=== PATIENT | female | born 2005 | race African-American/Black ===

== ENCOUNTER 2024-01-14 02:02 | Inpatient (IN) | payer BC, SELFPAY ==
[2024-01-14] VITALS (121 sets, daily range): BP systolic 117–202; BP diastolic 60–145; PULSE 62–100; RESP 14–18; TEMP 36.4–36.9; O2SAT 93–99; BMI 25.0
[2024-01-14] MEDS: NIFEdipine 10 MG CAPSULE PO (01:36)
[2024-01-14] MEDS: LABETALOL HCL 5 MG/ML inj IVP ×5 (01:52→13:41)
[2024-01-14 02:05] LABS: Hematocrit 36.6 % (33.0-51.0); Hemoglobin* 11.9 gm/dL (12.0-16.0); Mean Corpuscular HGB Conc 33 gm/dL (32-36); Mean Corpuscular Hemoglobin 27 pg (26-34); Mean Corpuscular Volume 84 fL (80-100); Platelet Count* 330 K/uL (140-440); Red Blood Count 4.37 m/uL (4.00-5.20); White Blood Count* 14.45 K/uL (4.50-11.00)
[2024-01-14] MEDS: MAGNESIUM IV 4 GM/100 ML PIGGYBACK IVPB (02:05)
[2024-01-14] MEDS: LACTATED RINGERS 1000 ML 1,000 ML 75 ML IV ×3 (02:05→18:20)
[2024-01-14 02:06] LABS: Slide Review Reflex No
[2024-01-14] MEDS: MAGNESIUM IV 2 GM/50 ML PIGGYBACK IVPB (02:06)
[2024-01-14 02:20] LABS: Alanine Aminotransferase* 19 U/L (4-35); Aspartate Amino Transferase* 14 U/L (12-35); Blood Urea Nitrogen* 6 mg/dL (5-24); Creatinine* 0.5 mg/dL (0.5-1.5); Estimated Glomerular Filt Rate 138 ml/min
[2024-01-14 02:25] LABS: Appearance Urine Clear (Clear); Bilirubin Urine 1+ (Negative); Blood Urine Trace-intact (Negative); Color Urine Yellow (Yellow); Glucose Urine Negative (Negative); Ketones Urine Trace (Negative); Leukocyte Esterase Urine Negative (Negative); Nitrite Urine Negative (Negative); Protein Urine 3+ (Negative); Specific Gravity Urine >= 1.030 (1.000-1.030)
[2024-01-14 02:39] LABS: Bacteria Urine Moderate; Calcium Oxalate Crystals Urine Moderate; RBC Urine 0-2 (0-2); Squamous Epithelial Cell Urine Few (None-Few)
[2024-01-14 02:40] LABS: Hyaline Casts Urine Few (None-Few)
[2024-01-14 02:50] LABS: Creatinine Urine 357.5 mg/dL
[2024-01-14 03:17] LABS: Total Protein Urine 2560 mg/dL
[2024-01-14] MEDS: ONDANSETRON 2 MG/ML inj 4 MG IV (03:42)
[2024-01-14] MEDS: MAGNESIUM Infusion 40 GM/1,000 ML IV.SOLN IVPB ×2 (04:03→20:18)
--- NOTE | 2024-01-14 04:31 | P.OBHP_ITS ---
OB - H&P: HPI Labor/Induction History of Present Illness Date Seen: 01/14/24 Chief Complaint: back pain Chief complaint: Maternity Narrative: Melissa Talavera is a 18 year old 1 para 0 at 36w1d who presents with back pain and contractions with concern for labor. This started around 10 pm on 01/13/24. When she arrived for evaluation, BP was significantly elevated at 184/114. Patient notes that she has been experiencing significant lower extremity swelling for the past several days. Additionally, has noticed some spots in her vision and dizziness. Denies headache. Has bilateral upper quadrant pain and back pain. Baby has been moving normally. Denies vaginal bleeding or LOF. Repeat blood pressures remained severely elevated. She was given 10 mg PO nifedipine without improvement in pressures and subsequently given 20 mg IV la betalol and started on IV magnesium with 6 g loading dose. She reports that swelling has improved since the magnesium was started. Labs significant for protein/creatinine ratio of 7.10. Labs Blood type: AB (-) negative Rubella: immune RPR/VDLR: nonreactive GBS status: unknown HBsAG: negative Meds Home Medications and Allergies Home Medications Medication Instructions Recorded Confirmed Type No Known Home Medications 02/12/23 01/14/24 History Allergies Allergy/AdvReac Type Severity Reaction Status Date / Time coconut Allergy Intermediate Verified 01/14/24 01:55 OB - H&P: Exam Physical Exam: Vital signs: Temp Pulse Resp BP 97.7 F 78 18 126/71 01/14/24 04:00 01/14/24 04:27 01/14/24 01:39 01/14/24 04:27 Constitutional: Constitutional: no acute distress Routine Respiratory Exam: Respiratory: Present CTA bilaterally Routine Cardiovascular Exam: Cardiovascular: RRR Routine Abdominal Exam: Comments: b/l upper quadrant tenderness to palpation Detailed Labor and Delivery Exam: Patient Gravid: Yes Dilation (cm): 1 Effacement (%): 50 Cervix position: mid Consistency: medium Fetus (Single): Station: -3 Amniotic Membrane Status: intact Heart Rate Baseline: 120 Monitor Accelerations: Present Monitor Decelerations: None Routine Extremities Exam: Extremities: Present pulses intact and pedal edema Routine Neurological Exam: Absent clonus OB - Results Labs Labs: Short CBC 01/14/24 Range/Units 01:45 WBC 14.45 H (4.50-11.00) K/uL Hgb 11.9 L (12.0-16.0) gm/dL Hct 36.6 (33.0-51.0) % Plt Count 330 (140-440) K/uL BMP 01/14/24 01:45 BUN 6 Creatinine 0.5 Liver Function 01/14/24 Range/Units 01:45 AST 14 (12-35) U/L ALT 19 (4-35) U/L Urine 01/14/24 Range/Units 01:57 Urine Color Yellow (Yellow) Urine Appearance Clear (Clear) Urine pH 7.0 (5.0-8.5) Ur Specific [place] >= 1.030 (1.000-1.030) Urine Protein 3+ A (Negative) Urine Glucose (UA) Negative (Negative) OB - Problem Based A/P Additional Plan (1) Pre-eclampsia, severe: Status: Acute (2) : Status: Acute Plan Patient presents with pre-eclampsia with severe features at 36w1d gestation. Plan of care discussed with on-call branch sales manager, Dr. Timmons. 1. Pre-eclampsia with severe features - continue magnesium, 2 g/hr, until delivery - labs Q6H until delivery - start nifedipine XL 30 mg - continue to monitor closely 2. IOL secondary to the above - cook catheter placed at 445 - begin low-dose Pitocin 6 hours following - anticipate 3. GBS unknown - GBS swab pending - intrapartum abx ppx when in labor
[2024-01-14 07:57] LABS: Hematocrit 32.1 % (33.0-51.0); Hemoglobin* 10.4 gm/dL (12.0-16.0); Mean Corpuscular HGB Conc 32 gm/dL (32-36); Mean Corpuscular Hemoglobin 27 pg (26-34); Mean Corpuscular Volume 84 fL (80-100); Platelet Count* 313 K/uL (140-440); Red Blood Count 3.82 m/uL (4.00-5.20); White Blood Count* 16.64 K/uL (4.50-11.00)
[2024-01-14 07:58] LABS: Slide Review Reflex No
[2024-01-14 08:13] LABS: Alanine Aminotransferase* 17 U/L (4-35); Aspartate Amino Transferase* 14 U/L (12-35); Blood Urea Nitrogen* 3 mg/dL (5-24); Creatinine* 0.4 mg/dL (0.5-1.5); Est. Creatinine Clearance* 193.73; Estimated Glomerular Filt Rate 145 ml/min
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
[2024-01-14] MEDS: NIFEdipine 30 MG TAB.ER.24 PO ×2 (08:31→13:44)
[2024-01-14] MEDS: ACETAMINOPHEN 500 MG TABLET 1000 MG PO (09:09)
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
[2024-01-14 09:22] LABS: Magnesium* 5.4 mg/dL (1.5-2.6)
--- NOTE | 2024-01-14 09:43 | P.OBPN_ITS ---
Subjective Time Seen by Provider: 09:43 Date Seen: 01/14/24 Narrative: Called to evaluate the patient for acute onset of chest pain, like an elephant sitting on my chest. Blood pressures 150s/90s. This was noted when laying back, and resolved with sitting up. EKG was unremarkable other than prolonged QTc. Troponin and mag level were obtained by order from the on-call provider, Dr. Fishman. Upon my arrival, chest pain had resolved. Patient notes feeling tired, but otherwise no acute complaints. Denies headache or blurry vision. Notes a lot of urine output. Leg swelling has improved from earlier in the week. BPs remain 150s/90s, just below acute treatment range. No contractions or cramping. Objective Exam: General appearance: Well-appearing adult female. Alert, oriented and appropriate. Sitting up in hospital bed. HEENT: EOMI, no conjunctival injection or discharge. MMM. Neck: Supple. CV: RRR, no rubs, 2/6 systolic murmur. Pulm: CTAB, no wheezes, rales or rhonchi. Abdomen: Gravid. Soft. MSK: Moving all extremities. Ext: Warm and well-perfused. Trace LE edema. Skin: No rashes appreciated over exposed skin. Neuro: Grossly normal strength and sensation. No focal deficits. Psych: Normal affect. Vital Signs: Last Vital Signs Temp 97.6 F 01/14/24 05:32 Pulse 82 01/14/24 09:34 Resp 18 01/14/24 01:39 BP 153/99 H 01/14/24 09:34 Pulse Ox 98 01/14/24 08:28 Assessment Assessment: induction ongoing Station: -3 Heart Rate Baseline: 120 Half-Way Variability: Moderate (6-25) Monitor Accelerations: Absent Monitor Decelerations: None Tracing Comments: Category II Plan Plan: # Chest pain: EKG unrevealing. D/c zofran for prolonged QTc. Do not suspect ACS. - troponin and mag level pending - Avoid QT prolonging medications # Severe pre-eclampsia - PET TRAINING INSTRUCTOR consult - continue mag protocol for seizure prophylaxis - Long-acting nicardipine 30 mg QD. Can consider additional dose if BPs not improved after 2 hours - Continue PRN medications for severe range pressures #IOL - Cook catheter in place - Initiate low dose pitocin at 1000 - Low threshold to discuss delivery by with PET TRAINING INSTRUCTOR if uncontrolled BPs, worsening clinical status, intolerance # Late pre-term status - Betamethasone - Plan for peds presence at delivery #GBS unknown - Start prophylaxis in active labor
[2024-01-14 09:48] LABS: Magnesium* 5.3 mg/dL (1.5-2.6)
[2024-01-14 09:55] LABS: Troponin I* 0.02 ng/mL (0.01-0.04)
[2024-01-14] MEDS: BETAMETHASONE SOD PHOS/ACETATE 6 MG/ML ML 12 MG IM (10:03)
[2024-01-14] MEDS: MORPHINE 10 MG/ML inj IM (10:04)
[2024-01-14] MEDS: hydrOXYzine pamoate 25 MG CAPSULE 100 MG PO (10:05)
[2024-01-14] MEDS: OXYTOCIN 30 unit/500 ML in NS 30 UNIT/500 ML BAG IVPB (10:13)
[2024-01-14 14:29] LABS: Hematocrit 33.3 % (33.0-51.0); Hemoglobin* 10.8 gm/dL (12.0-16.0); Mean Corpuscular HGB Conc 32 gm/dL (32-36); Mean Corpuscular Hemoglobin 27 pg (26-34); Mean Corpuscular Volume 84 fL (80-100); Platelet Count* 317 K/uL (140-440); Red Blood Count 3.96 m/uL (4.00-5.20); White Blood Count* 17.28 K/uL (4.50-11.00)
[2024-01-14 14:30] LABS: Slide Review Reflex No
[2024-01-14 14:43] LABS: Alanine Aminotransferase* 18 U/L (4-35); Aspartate Amino Transferase* 13 U/L (12-35); Blood Urea Nitrogen* 2 mg/dL (5-24); Creatinine* 0.4 mg/dL (0.5-1.5); Est. Creatinine Clearance* 193.73; Estimated Glomerular Filt Rate 145 ml/min
[2024-01-14 16:50] LABS: Strep B DNA Probe Negative (Negative)
[2024-01-14 17:04] LABS: Strep B Susceptibility Needed? No
[2024-01-14] MEDS: ROPIVACAINE 0.2% 100 ml 100 ML 12 MG EPIDURAL (18:33)
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
[2024-01-14] MEDS: AMPICILLIN 2 GM in 0.9 % SODIUM CHLORIDE Mini-bag 100 ML IVPB (18:52)
--- NOTE | 2024-01-14 19:21 | PM.OBPNL ---
Subjective Time Seen by Provider: 19:21 Date Seen: 01/14/24 Narrative: Called to evaluate the patient for possible AROM. Cook catheter removed at 1645, cervix found to be 5/80/0 with bulging bag at 1747. Epidural placed per patient request, now resting comfortably. Blood pressures have remained below treatment range, improved with epidural. Objective Vital Signs: Last Vital Signs Temp 97.6 F 01/14/24 15:43 Pulse 88 01/14/24 19:12 Resp 18 01/14/24 01:39 BP 117/63 01/14/24 19:12 Pulse Ox 97 01/14/24 18:51 Pelvic Exam Dilation (cm): 6.5 Effacement (%): 80 Station: +1 Contractions Monitor mode: External Contraction Frequency: Q2-6 Pitocin Rate (mU/min): 9 Assessment Assessment: active labor Station: +1 Amniotic Membrane Status: AROM Status: Category ll Heart Rate Baseline: 115 Halfway Variability: Moderate (6-25) Monitor Accelerations: Absent Monitor Decelerations: Variable Tracing Comments: several small variables following AROM Plan Plan: # Labor: AROM for clear fluid. Progressing well. - Continue IV pitocin - Epidural with good effect - GBS unknown. S/p 1 dose of ampicillin. Next dose due at 2245 - FHT category II - Anticipate vaginal delivery # Severe Pre-eclampsia: Currently stable, below treatment range. Labs have been stable. Adequate urine production. - IV magnesium for seizure prophylaxis - Treat severe range pressures PRN - Q6 labs
[2024-01-14 20:11] LABS: Hematocrit 32.6 % (33.0-51.0); Hemoglobin* 10.5 gm/dL (12.0-16.0); Mean Corpuscular HGB Conc 32 gm/dL (32-36); Mean Corpuscular Hemoglobin 27 pg (26-34); Mean Corpuscular Volume 84 fL (80-100); Platelet Count* 309 K/uL (140-440); Red Blood Count 3.87 m/uL (4.00-5.20); White Blood Count* 19.81 K/uL (4.50-11.00)
[2024-01-14 20:21] LABS: Slide Review Reflex No
[2024-01-14 20:25] LABS: Aspartate Amino Transferase* 14 U/L (12-35); Creatinine* 0.5 mg/dL (0.5-1.5); Est. Creatinine Clearance* 154.98; Estimated Glomerular Filt Rate 138 ml/min
[2024-01-14 20:26] LABS: Alanine Aminotransferase* 20 U/L (4-35); Blood Urea Nitrogen* 2 mg/dL (5-24)
[2024-01-14] MEDS: AZITHROMYCIN 500 MG in 0.9 % SODIUM CHLORIDE 250 ml 250 ML 255 MG IVPB (22:00)
--- NOTE | 2024-01-14 22:25 | AC.NBPN ---
NB Vitals Data Weight/Weight Change Weight/Weight Change Weight 66.27 kg Weight 66.27 kg Weight 66.043 kg Recent Vital Signs Recent Vital Signs: Last Vital Signs Temp 98.5 F 01/14/24 19:29 Pulse 98 01/14/24 22:12 Resp 18 01/14/24 19:29 BP 147/86 H 01/14/24 22:12 Pulse Ox 97 01/14/24 18:51 Results Labs Labs: Laboratory Results - last 24 hr 01/14/24 01/14/24 01/14/24 01:45 01:57 07:20 WBC 14.45 H 16.64 H RBC 4.37 3.82 L Hgb 11.9 L 10.4 L Hct 36.6 32.1 L MCV 84 84 MCH 27 27 MCHC 33 32 Plt Count 330 313 BUN 6 3 L Creatinine 0.5 0.4 L Estimated Creat Clear 193.73 Estimated GFR 138 145 Magnesium 5.4 H* AST 14 14 ALT 19 17 Troponin I Urine Color Yellow Urine Appearance Clear Urine pH 7.0 Ur Specific Dickens >= 1.030 Urine Protein 3+ A Urine Glucose (UA) Negative Urine Ketones Trace A Urine Blood Trace-intact A Urine Nitrite Negative Urine Bilirubin 1+ A Urine Urobilinogen 4.0 A Ur Leukocyte Esterase Negative Urine RBC 0-2 Urine WBC 2-5 Ur Squamous Epith Cells Few Calcium Oxalate Crystal Moderate A Urine Bacteria Moderate A Hyaline Casts Few Urine Creatinine 357.5 Protein/Creatinin Ratio 7.10 H Urine Total Protein 2560 Group B Strep DNA Negative Lab Acknowledgement Blood Type AB Negative Antibody Screen POSITIVE 01/14/24 01/14/24 01/14/24 08:28 09:15 14:21 WBC 17.28 H RBC 3.96 L Hgb 10.8 L Hct 33.3 MCV 84 MCH 27 MCHC 32 Plt Count 317 BUN 2 L Creatinine 0.4 L Estimated Creat Clear 193.73 Estimated GFR 145 Magnesium 5.3 H* AST 13 ALT 18 Troponin I 0.02 Urine Color Urine Appearance Urine pH Ur Specific Dickens Urine Protein Urine Glucose (UA) Urine Ketones Urine Blood Urine Nitrite Urine Bilirubin Urine Urobilinogen Ur Leukocyte Esterase Urine RBC Urine WBC Ur Squamous Epith Cells Calcium Oxalate Crystal Urine Bacteria Hyaline Casts Urine Creatinine Protein/Creatinin Ratio Urine Total Protein Group B Strep DNA Lab Acknowledgement Test Added Blood Type Antibody Screen 01/14/24 19:54 WBC 19.81 H RBC 3.87 L Hgb 10.5 L Hct 32.6 L MCV 84 MCH 27 MCHC 32 Plt Count 309 BUN 2 L Creatinine 0.5 Estimated Creat Clear 154.98 Estimated GFR 138 Magnesium AST 14 ALT 20 Troponin I Urine Color Urine Appearance Urine pH Ur Specific Dickens Urine Protein Urine Glucose (UA) Urine Ketones Urine Blood Urine Nitrite Urine Bilirubin Urine Urobilinogen Ur Leukocyte Esterase Urine RBC Urine WBC Ur Squamous Epith Cells Calcium Oxalate Crystal Urine Bacteria Hyaline Casts Urine Creatinine Protein/Creatinin Ratio Urine Total Protein Group B Strep DNA Lab Acknowledgement Blood Type Antibody Screen Maxwell A/P Assessment and plan (1) Pre-eclampsia, severe: Status: Acute (2) : Status: Acute
--- NOTE | 2024-01-14 22:27 | P.OBPN_ITS ---
Subjective Time Seen by Provider: 22:27 Date Seen: 01/14/24 Narrative: IUPC and FSE placed d/t variable decelerations and difficulty tracing with external monitors. Subsequent recurrent variable decelerations not improving despite fluid bolus, repositioning. Rechecked with no cervical change. Decelerations improved, but did not resolve despite stopping IV pitocin. 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 Carrasco was consulted due to concern for intolerance of labor remote from delivery. She recommends we proceed with section. This was discussed with the patient and her family, who is in agreement with the plan. Objective Vital Signs: Last Vital Signs Temp 98.5 F 01/14/24 19:29 Pulse 98 01/14/24 22:12 Resp 18 01/14/24 19:29 BP 147/86 H 01/14/24 22:12 Pulse Ox 97 01/14/24 18:51 Pelvic Exam Dilation (cm): 6.5 Effacement (%): 80 Station: +1 Contractions Monitor mode: External Pitocin Rate (mU/min): 9 Assessment Station: +1 Amniotic Membrane Status: AROM Status: Category ll Heart Rate Baseline: 115 Alf Variability: Minimal (3-5) Monitor Accelerations: Absent Monitor Decelerations: Variable Plan Plan: #Labor: Plan to proceed with section for intolerance of labor remote from delivery. Dr. Carrasco will assume care. #Severe pre-eclampsia: Blood pressures uptrending, but remain below treatment threshold.
--- NOTE | 2024-01-14 22:34 | P.OBPN_ITS ---
Subjective Time Seen by Provider: 22:15 Date Seen: 01/14/24 Narrative: Ms. Talavera is a 18yo at 36w1d GA admitted for induction of labor for preeclampsia with severe features. She is under the care primarily of Dr. Lopez of [facility], status post obstetric consultation by myself this morning. Please seen for complete details. I was alerted of a category 2 heart rate tracing at 2150, in the setting of recurrent deep variable decelerations with rapid return to baseline but diminishing variability. heart rate tracing was reviewed by myself and affirmed, where deep recurrent variables are noted for the last hour. These have become progressively deeper, with latest to a mehnaz of 50bpm. The heart rate does rapidly improved to a baseline of 115 beats per minute with primarily minimal variability. Resuscitative efforts including cessation of Pitocin, maternal repositioning and IV fluid bolus have been attempted without success. As such, recommendation for primary delivery was made and presented to the bedside from home. Discussed potential role of amnio infusion in the interim. On arrival, Brenda is in the hands and knees position. She continues to have intermittent variable decelerations with periods of moderate variability, though these are significantly improved from previous. I discussed my concern for heart rate changes remote from delivery particularly in the setting of her preeclampsia with severe features, or I am concerned that her fetus would not tolerate or active labor nor the 2nd stage. After my recommendation to proceed with a primary delivery. Patient and her family expressed understanding. We discussed the risks, benefits and alternatives to primary in detail. Risks including bleeding, infection, damage to surrounding structures were reviewed thoroughly. After this discussion, written consent was obtained. Offered placement of IUD after delivery, patient does not wish to proceed with this immediately but may consider this at her interval visit. Objective Vital Signs: Last Vital Signs Temp 98.5 F 01/14/24 19:29 Pulse 96 01/14/24 22:27 Resp 18 01/14/24 19:29 BP 150/85 H 01/14/24 22:27 Pulse Ox 97 01/14/24 18:51 Pelvic Exam Dilation (cm): 6.5 Effacement (%): 80 Station: +1 Contractions Monitor mode: External Pitocin Rate (mU/min): 9 Assessment Station: +1 Amniotic Membrane Status: AROM Status: Category ll Heart Rate Baseline: 115 Monitor Accelerations: Absent Monitor Decelerations: Variable Plan Plan: - Plan to proceed with primary delivery, written consent obtained. Offered IUD placement concurrently, patient politely declined. - Plan perioperative Ancef azithromycin - Blood type AB-negative, active type and screen on file and consent for blood provided if needed - GBS negative - Continue magnesium suflate for seizure prophylaxis through delivery and for 24 hours - Pediatrics care per Dr. Lopez
--- NOTE | 2024-01-14 22:59 | P.OBPRC_ITS ---
Procedure Time Seen by Provider: 22:59 Date of procedure: 01/14/24 Pre-op diagnosis: Nonreassuring heart tones, preeclampsia with severe features Post-op diagnosis: same Procedure Done: only Will [facility] bill your pro fee for this procedure?: Yes Blood Loss Measurement Type: QBL (379) Bakri Used: No Surgeon: Angelo Carrasco MD Anesthesia Type: Epidural Findings: Male in direct OP position Unremarkable uterus, tubes and ovaries Procedure Name: Primary delivery Procedure Description: Patient was taken to the operating room with IV running. She received cefazolin and azithromycin in preoperative prophylaxis. Epidural anesthesia had previously been administered. Dhillon catheter had been previously inserted. She was prepped and draped in the usual sterile fashion. Anesthesia was tested and found to be adequate. A low-transverse skin incision was made with a scalpel and carried through to the underlying layer of fascia with the scalpel. The subcutaneous fat was dissected off the underlying fascia with Bovie. The fascia was nicked in the midline with a scalpel, and this incision was extended laterally with scissors. The rectus muscles were in the midline. Peritoneum was identified and entered bluntly. Bovie was used to widen this opening laterally. Gilmar O retractor was inserted and tightened down, providing excellent visualization of the lower uterine segment. The bladder reflection was found to be advanced to the superior margin of the lower uterine segment, where a bladder flap was created with a combination of sharp and blunt dissection to below the level of planned hysterotomy. Low-transverse uterine incision was made with a scalpel. Incision was widened bluntly. The 's head was grasped through the hysterotomy and delivered with the help of fundal pressure, direct OP position noted. The remainder of the body delivered without incident. Cord was clamped and cut after 30 seconds. Infant was handed off to attending nurses. Nuchal cord was not noted. The placenta was delivered with gentle traction on the cord. The uterus was cleaned of all clots and debris with the dry lap pad. The hysterotomy was reapproximated with 0 Vicryl in a running, locked fashion. Second layer of the same suture was used in imbricating fashion to obtain hemostasis. Excellent uterine tone was noted. The adnexa were examined and noted to be normal in appearance. The cul-de-sac and gutters were cleansed with dampened laparotomy sponge, removing any further clots and debris. The Gilmar O retractor was removed. The hysterotomy was reexamined and found to be hemostatic. Bladder flap was examined and found to be hemostatic. The rectus muscles were examined and made to be hemostatic with electrocautery. The fascia was reapproximated with 0 Vicryl in a running fashion. Subcutaneous fat was irrigated and Bovie used on oozing vessels. The skin was closed with a subcuticular stitch of 3-0 Monocryl. Surgical glue was applied above this. Patient tolerated procedure well was taken to recovery area in stable condition. details: - Delivery of live-born male occurred at 2328 - Apgars were 7 and 9 at 1 and 5 minutes respectively - weighed 5lb 7oz Complications: None Pathology: specimen obtained, sent to pathology Surgery Debrief Performed: Yes Condition: stable Disposition: floor Pathology: specimen obtained, sent to pathology Surgery Debrief Performed: Yes Condition: stable
[2024-01-14] MEDS: CEFAZOLIN 2 GM INJ IVP (23:14)
--- NOTE | 2024-01-14 23:44 | SUR.OPER ---
PATIENT BROUGHT TO OR #5 PER CART. Patient positioned supine on OR #5 bed. CORD BLOOD SPECIMEN IN A PURPLE TOPPED VIAL HANDED TO MADHAV JETER RN.
[2024-01-15] VITALS (53 sets, daily range): BP systolic 79–165; BP diastolic 54–112; PULSE 71–105; RESP 14–18; TEMP 36.4–37.2; O2SAT 93–99
[2024-01-15] MEDS: KETOROLAC 15 MG/ML inj IVP (00:02)
--- NOTE | 2024-01-15 00:04 | P.ANES_ITS ---
Anesthesia Charges Start Date/Time Anesthesia Start Date: 01/15/24 Anesthesia Start Time: 23:03 Stop Date/Time Anesthesia Stop Date: 01/15/24 Anesthesia Stop Time: 00:21 Summary Emergency: CREDIT AUTHORIZER
[2024-01-15] MEDS: HYDRALAZINE HCL 20 MG/ML inj IVP ×2 (02:08→02:28)
[2024-01-15 02:34] LABS: Hematocrit 31.2 % (33.0-51.0); Mean Corpuscular HGB Conc 32 gm/dL (32-36); Mean Corpuscular Hemoglobin 27 pg (26-34); Mean Corpuscular Volume 85 fL (80-100); Platelet Count* 306 K/uL (140-440); Red Blood Count 3.69 m/uL (4.00-5.20)
[2024-01-15 02:41] LABS: Alanine Aminotransferase* 17 U/L (4-35); Aspartate Amino Transferase* 15 U/L (12-35); Creatinine* 0.4 mg/dL (0.5-1.5); Est. Creatinine Clearance* 193.73; Estimated Glomerular Filt Rate 145 ml/min
[2024-01-15] MEDS: ACETAMINOPHEN 500 MG TABLET 1000 MG PO ×3 (02:43→15:49)
[2024-01-15] MEDS: OXYCODONE 5 MG TABLET PO ×2 (02:43→08:19)
[2024-01-15] MEDS: NIFEdipine 10 MG CAPSULE PO (02:49)
[2024-01-15 02:50] LABS: Magnesium* 9.8 mg/dL (1.5-2.6)
[2024-01-15 02:51] LABS: Slide Review Reflex No; White Blood Count* 26.38 K/uL (4.50-11.00)
[2024-01-15] MEDS: KETOROLAC 30 MG/ML inj 15 MG IVP ×3 (06:09→18:44)
[2024-01-15 06:56] LABS: Hematocrit 26.6 % (33.0-51.0); Hemoglobin* 8.8 gm/dL (12.0-16.0); Mean Corpuscular HGB Conc 33 gm/dL (32-36); Mean Corpuscular Hemoglobin 28 pg (26-34); Mean Corpuscular Volume 83 fL (80-100); Platelet Count* 313 K/uL (140-440); Red Blood Count 3.19 m/uL (4.00-5.20)
[2024-01-15 06:59] LABS: Slide Review Reflex No; White Blood Count* 25.19 K/uL (4.50-11.00)
[2024-01-15 07:09] LABS: Aspartate Amino Transferase* 16 U/L (12-35); Creatinine* 0.3 mg/dL (0.5-1.5); Est. Creatinine Clearance* 258.31; Estimated Glomerular Filt Rate 156 ml/min
[2024-01-15 07:10] LABS: Alanine Aminotransferase* 17 U/L (4-35)
[2024-01-15 07:11] LABS: Magnesium* 5.4 mg/dL (1.5-2.6)
[2024-01-15] MEDS: NIFEdipine 30 MG TAB.ER.24 PO ×3 (08:00→08:30)
[2024-01-15] MEDS: DOCUSATE SODIUM 100 MG CAPSULE PO (08:17)
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
[2024-01-15 13:35] LABS: Hematocrit 23.3 % (33.0-51.0); Mean Corpuscular HGB Conc 33 gm/dL (32-36); Mean Corpuscular Hemoglobin 28 pg (26-34); Mean Corpuscular Volume 84 fL (80-100); Platelet Count* 321 K/uL (140-440); Red Blood Count 2.76 m/uL (4.00-5.20); White Blood Count* 21.14 K/uL (4.50-11.00)
[2024-01-15 13:36] LABS: Hemoglobin* 7.6 gm/dL (12.0-16.0); Slide Review Reflex No
[2024-01-15 14:09] LABS: Alanine Aminotransferase* 15 U/L (4-35); Aspartate Amino Transferase* 12 U/L (12-35); Creatinine* 0.4 mg/dL (0.5-1.5); Est. Creatinine Clearance* 193.73; Estimated Glomerular Filt Rate 145 ml/min
[2024-01-15] MEDS: SIMETHICONE 80 MG TAB.CHEW PO (14:13)
[2024-01-15 14:15] LABS: Magnesium* 5.6 mg/dL (1.5-2.6)
[2024-01-15] MEDS: LACTATED RINGERS 1000 ML 1,000 ML 75 ML IV (14:16)
[2024-01-15] MEDS: MAGNESIUM Infusion 40 GM/1,000 ML IV.SOLN IVPB (16:36)
[2024-01-15 18:19] LABS: Rapid Plasma Reagin (RPR) Non Reactive (Non Reactive)
--- NOTE | 2024-01-15 19:18 | PM.OBPNL ---
Subjective Time Seen by Provider: 14:30 Date Seen: 01/15/24 Narrative: Delayed documentation due to patient care. I was alerted by RN that Melissa has been slow to meet post-op milestones and has had downtrending Hgb. I presented to the bedside, where Melissa was lying in bed resting. She notes feeling bad today, with abdominal pain. She notes this is unchanged in severity/characterization from that when I rounded this morning. She trialed dangling at the edge of the bed and notes feeling hot and lightheaded. She is tolerating PO intake without nausea/vomiting. Denies chest pain and dyspnea. Lochia has been moderate - no concerns by RN report. VS are notable for normal to low mild range BPs on nifedipine XL 60mg QAM. HELLP labs have been within normal limits. UOP has been robust at 250cc/hr over the last 4 hours. Objective Exam: General: Alert and oriented, lying in bed - fatigued appearance. Abdomen: Gaseous distension, palpates soft. Diffuse tenderness to palpation, greatest at lower abdomen. No rebound or guarding. Fundus palpates at umbilicus. TAUS: Endometrial stripe appears homogenous and thin. No retrouterine blood collection visualized. Bedside FAST exam notable for no evidence of hemoperitoneum in RUQ at Smalls's pouch. Vital Signs: Last Vital Signs Temp 98.6 F 01/15/24 08:22 Pulse 103 H 01/15/24 18:41 Resp 16 01/15/24 18:16 BP 105/70 01/15/24 18:41 Pulse Ox 97 01/15/24 15:20 O2 Del Method Room Air 01/15/24 08:25 Pelvic Exam Dilation (cm): 6.5 Effacement (%): 80 Station: +1 Contractions Monitor mode: External Pitocin Rate (mU/min): 9 Assessment Station: +1 Amniotic Membrane Status: AROM Status: Category ll Heart Rate Baseline: 115 Monitor Accelerations: Absent Monitor Decelerations: Variable Plan Plan: We discussed potential etiologies for anemia, where fortunately her VS are within normal limits and UOP remains robust. She has had moderate lochia with fundus palpating at umbilicus. Abdominal exam negative for rebound/guarding, though she is diffusely tender and complaining of generalized abdominal pain. Given symptomatic anemia, recommend transfusion of 1u pRBCs. Melissa expressed understanding and is agreeable. Plan post procedure hemoglobin to assess rate of rise. Low threshold to re-evaluate with worsening symptoms. Addendum: After ordering blood, we were notified there would be a delay secondary to positive antibody screen. Anticipated transfusion time is about 3400-9726 this evening. Plan to diligently monitor VS, UOP and for changes in her vaginal bleeding/abdominal exam in the interim. Continue Q6H HELLP labs.
[2024-01-15 19:35] LABS: Hematocrit 16.7 % (33.0-51.0); Mean Corpuscular HGB Conc 33 gm/dL (32-36); Mean Corpuscular Hemoglobin 28 pg (26-34); Mean Corpuscular Volume 84 fL (80-100); Platelet Count* 287 K/uL (140-440); Red Blood Count 1.98 m/uL (4.00-5.20); White Blood Count* 19.24 K/uL (4.50-11.00)
[2024-01-15 19:49] LABS: Hemoglobin* 5.5 gm/dL (12.0-16.0); Slide Review Reflex No
[2024-01-15 19:58] LABS: Alanine Aminotransferase* 14 U/L (4-35); Aspartate Amino Transferase* 11 U/L (12-35); Creatinine* 0.5 mg/dL (0.5-1.5); Est. Creatinine Clearance* 154.98; Estimated Glomerular Filt Rate 138 ml/min
--- NOTE | 2024-01-15 19:59 | CT_ITS ---
Patient: FLORA SOTELO Facility:?[facility] Patient ID:?[id number] Site Patient ID:?[id number]. Site :?[id number] Study:?CT-Abdomen/Pelvis W/58CC [id number]/25/2024 8:36:06 PM Ordering Physician:LISY Final Report: INDICATION: Dropping hemoglobin. Status post . TECHNIQUE: CT abdomen and pelvis acquired with 58 cc Isovue 370 IV contrast. Comparison: None Findings: There are postoperative seroma section. There is a moderate to large amount of free fluid in the abdomen and pelvis. Relatively dense fluid in the lower abdomen and pelvis is difficult to distinguish from the enlarged uterus and bowel. There does appear to be active bleeding from a left periuterine blood vessel. Liver, gallbladder, pancreas, spleen, adrenal glands and kidneys are normal in caliber and appearance. The GI tract is normal in caliber and appearance. No sign of GI tract mass or inflammation. Vascular structures are normal. No lymphadenopathy. No peritoneal abnormalities. No free fluid or free air. Osseous structures are unremarkable. Impression: Post changes with evidence of active bleeding and a relatively large amount of free fluid/blood in the abdomen and pelvis. Attempting to reach the provider at the time of this dictation at 2210 hours. Please note that all CT scans at this facility use dose modulation, iterative reconstruction, and/or weight-based dosing when appropriate to reduce radiation dose to as low as reasonably achievable. Dictated by Jignesh Hernández MD @ 01/15/2024 10:13:15 PM Signed by:?Jignesh Hernández MD @01/15/2024 10:13:15 PM (Electronic Signature)
[2024-01-15 20:02] LABS: Magnesium* 6.1 mg/dL (1.5-2.6)
[2024-01-15 20:18] LABS: INR 0.97 (0.91-1.10); Partial Thromboplastin Time* 26 Seconds (23-33); Prothrombin Time 13.4 Seconds
[2024-01-15 20:19] LABS: Fibrinogen* 398 mg/dL (200-450)
--- NOTE | 2024-01-15 20:37 | P.OBPN_ITS ---
OB - PN:Subj Subjective Time Seen by Provider: 20:10 Date Seen: 01/16/24 Narrative: Ms. Talavera is a 18yo seen on POD1 from primary for NRFHT remote from delivery in the setting of preeclampsia with severe features. Please see prior notes for complete details. I was alerted by RN of a critical Hgb value of 5.5mg/dL at 1950. Requested stat addition of PT/INR, aPTT and fibrinogen to her labs. Requested stat CT A/P with IV contrast for suspected hemoperitoneum. I immediately presented to the bedside from home. On arrival, Melissa was noted to be in distress secondary to pain and very fatigued. She responded to questioning appropriately, noting feeling awful. On EMR review, starting at 1721 there was a change in her BP from the 120-130s systolic over 80s-90s diastolic to 100/70 with intermittent tachycardia to 105. I learned she had a syncopal event during her last trial of ambulation at approximately 1830. UOP noted to be 100cc/hr over the last 4 hours, decreased from her historic baseline of robust UOP in the setting of preeclampsia. OB - PN: Obj Exam Physical Exam: Vital signs: Temp Pulse Resp BP Pulse Ox O2 Del Method 98.1 F 100 14 102/71 97 Room Air 01/15/24 20:09 01/15/24 20:09 01/15/24 20:09 01/15/24 20:01/15/24 20:01/15/24 19:30 Narrative: General: Fatigued, eyes closed primarily. Appropriate response to questioning. Abdomen: Markedly increased distension from last exam, though abdomen remains soft. Diffuse tenderness with rebound and guarding noted. Stat CT A/P images were reviewed, where there is evidence of pelvic hematoma anterior to the uterus with associated diffuse hemoperitoneum. Formal radiology read was not available. Decision was made to proceed to OR given clinical picture and my review of CT images. Urinary Catheter Management: Urethral: Cath placed during this visit: no Reason for continuing: surgical procedure OB - PN: Obj Data Labs Labs: Laboratory Results - last 24 hr 01/14/24 01/15/24 01/15/24 01:45 01:55 06:36 WBC 26.38 H* 25.19 H* RBC 3.69 L 3.19 L Hgb 10.0 L 8.8 L Hct 31.2 L 26.6 L MCV 85 83 MCH 27 28 MCHC 32 33 Plt Count 306 313 INR APTT Fibrinogen Creatinine 0.4 L 0.3 L Estimated Creat Clear 193.73 258.31 Estimated GFR 145 156 Magnesium 9.8 H* 5.4 H* AST 15 16 ALT 17 17 RPR Screen Non Reactive Blood Type AB Negative Antibody Screen POSITIVE Antibody Identification Anti-D Screen Negative Crossmatch (AHG) See Detail 01/15/24 01/15/24 01/15/24 13:28 19:27 19:54 WBC 21.14 H 19.24 H RBC 2.76 L 1.98 L Hgb 7.6 L* 5.5 L* Hct 23.3 L 16.7 L MCV 84 84 MCH 28 28 MCHC 33 33 Plt Count 321 287 INR 0.97 APTT 26 Fibrinogen 398 Creatinine 0.4 L 0.5 Estimated Creat Clear 193.73 154.98 Estimated GFR 145 138 Magnesium 5.6 H* 6.1 H* AST 12 11 L ALT 15 14 RPR Screen Blood Type Antibody Screen Antibody Identification Screen Crossmatch (AHG) OB - PN: A/P Delivery Assessment and Plan (1) Pre-eclampsia, severe: Status: Acute (2) : Status: Acute Plan Ms. Talavera is a 18yo seen on POD1 from primary . ANC complicated by preeclampsia with SF. Her delivery was previously uncomplicated, however she has developed progressive anemia throughout the day with failure to meet post- operative milestones. There is a baseline change in her VS with relative decrease in her BP and rise in HR. UOP maintained at 100cc/hr, however this too is decreased from previous. Abdominal exam significant for worsening distension with new rebound/guarding. Last Hgb 5.5, awaiting arrival of 2u crossmatched pRBCs. Stat CT A/P images reviewed where there is evidence of hemoperitoneum - formal radiology read pending. Written consent for exploratory laparotomy, proceed as indicated, possible hysterectomy was obtained my Melissa's mom by Melissa's request due to fatigue. We discussed risks of surgery, where hysterectomy would only be performed for bleeding unresponsive to uterine conserving measures. Bedside RN was present as witness. - Plan to proceed to the OR emergently for suspected ongoing intraabdominal bleeding. Requested partner to assist with case, Dr. Ellis to assist. - Ongoing transfusion of 2u pRBCs, plan to notify blood bank to prepare 2 additional units to be available. - 2g perioperative ancef - Discussed potential transfer to tertiary care facility pending intraoperative findings for access to Interventional Radiology and/or more robust blood bank following surgery. We will readdress need for transfer following surgery.
[2024-01-15] MEDS: OXYTOCIN 10 UNIT/ML INJ IM (22:00)
[2024-01-15 22:11] LABS: Basophils Percent Auto 0.2 % (0.0-3.0); Eosinophils Percent Auto 0.1 % (0.0-7.0); Hematocrit 17.1 % (33.0-51.0); Immature Granulocytes Pct Auto 0.4 %; Lymphocytes Percent Auto 10.7 % (20-44); Mean Corpuscular HGB Conc 33 gm/dL (32-36); Mean Corpuscular Hemoglobin 29 pg (26-34); Mean Corpuscular Volume 87 fL (80-100); Monocytes Percent Auto 4.1 % (0.0-11.0); Neutrophils Percent Auto 84.5 % (42.0-72.0); Platelet Count* 232 K/uL (140-440); RDW Coefficient of Variation % 13.6 % (11.5-15.5); Red Blood Count 1.96 m/uL (4.00-5.20); White Blood Count* 17.37 K/uL (4.50-11.00)
[2024-01-15 22:16] LABS: Hemoglobin* 5.7 gm/dL (12.0-16.0); Slide Review Reflex No
[2024-01-15 22:21] LABS: Fibrinogen* 311 mg/dL (200-450)
[2024-01-15 22:22] LABS: INR 1.05 (0.91-1.10); Partial Thromboplastin Time* 26 Seconds (23-33); Prothrombin Time 14.4 Seconds
[2024-01-15 23:09] LABS: Ionized Calcium* 0.82 mmol/L (1.11-1.30)
[2024-01-15 23:14] LABS: Basophils Percent Auto 0.2 % (0.0-3.0); Eosinophils Percent Auto 0.2 % (0.0-7.0); Hematocrit 24.8 % (33.0-51.0); Hemoglobin* 8.3 gm/dL (12.0-16.0); Immature Granulocytes Pct Auto 0.5 %; Lymphocytes Percent Auto 7.9 % (20-44); Mean Corpuscular HGB Conc 34 gm/dL (32-36); Mean Corpuscular Hemoglobin 29 pg (26-34); Mean Corpuscular Volume 86 fL (80-100); Monocytes Percent Auto 4.4 % (0.0-11.0); Neutrophils Percent Auto 86.8 % (42.0-72.0); Platelet Count* 170 K/uL (140-440); RDW Coefficient of Variation % 14.1 % (11.5-15.5); Red Blood Count 2.89 m/uL (4.00-5.20); White Blood Count* 16.88 K/uL (4.50-11.00)
[2024-01-15 23:17] LABS: Slide Review Reflex No
[2024-01-15 23:31] LABS: Chloride* 104 mmol/L (96-114); Potassium* 3.7 mmol/L (3.6-5.1); Sodium* 130 mmol/L (135-149)
[2024-01-15 23:33] LABS: Creatinine* 0.5 mg/dL (0.5-1.5); Est. Creatinine Clearance* 154.98; Estimated Glomerular Filt Rate 138 ml/min
[2024-01-15 23:34] LABS: Anion Gap 6 mEq/L (7-15); Blood Urea Nitrogen* 4 mg/dL (5-24); Carbon Dioxide* 20 mmol/L (20-32); Glucose* 106 mg/dL (60-115)
[2024-01-15 23:37] LABS: Calcium* 5.7 mg/dL (8.4-10.6)
[2024-01-15 23:52] LABS: INR 1.03 (0.91-1.10); Prothrombin Time 14.2 Seconds
[2024-01-15 23:53] LABS: Partial Thromboplastin Time* 27 Seconds (23-33)
[2024-01-15 23:54] LABS: Fibrinogen* 316 mg/dL (200-450)
--- NOTE | 2024-01-15 23:58 | W.ANESCHARGE ---
Anesthesia Charges Start Date/Time Anesthesia Start Date: 01/15/24 Anesthesia Start Time: 21:32 Stop Date/Time Anesthesia Stop Date: 01/15/24 Anesthesia Stop Time: 23:50 Summary Emergency: GRADUATE ENGINEER
--- NOTE | 2024-01-16 00:29 | P.GYNPRC_ITS ---
Procedure Note Time Seen by Provider: 22:30 Date of procedure: 01/16/24 Pre-op diagnosis: Suspected post-operative intraabdominal bleeding, hemoperitoneum Post-op diagnosis: same Procedure: Exploratory laparotomy, evacuation of hematoma Anesthesia: GETA Complications: None Surgeon: Angelo Carrasco MD Celluloid Trimmer: Esmer Ellis Estimated blood loss (mL): 2,180 IV fluids (mL): 2,000 Urine Output (mL): 200 Pathology: none sent Condition: stable Disposition: other Findings: Large volume hemoperitoneum Unremarkable uterus, bilateral fallopian tubes and ovaries aside from known hysterotomy closure - noted to be intact Small bleeding vessel at the inferior aspect of the right rectus abdominis Hematoma with adherent clot to superior/left bladder, non-expanding with no active bleeding No evidence of ongoing intraabdominal hemorrhage Procedure Description: After obtaining informed consent, the patient was taken to the operating room where general anesthesia was obtained without difficulty. Perioperative ancef was administered. She was prepared and draped in the normal sterile fashion in the dorsal supine position. A Dhillon catheter was indwelling. A surgical pause was performed. Labs were immediately prior to procedure were drawn, just as f irst unit of pRBCs was finishing. Previous Pfannensteil skin incision was re-opened with a scalpel and carried down to the layer of the fascia. The previous fascial incision was nicked with a knife and removed to allow access to the abdomen. Return of clot was immediately noted. Massive transfusion protocol was initiated. The pelvic hematoma was manually evacuated to allow for visualization. Gilmar O retractor was placed. The pelvic gutters and upper abdomen were manually explored for evacuation of further hematoma. Active bleeding was not readily apparent. We first began exploring the hysterotomy site, which was noted to be intact with no brisk bleeding. There was one are of small volume oozing on the right corner, where a reinforcing figure of eight suture was applied with 0 vicryl. Uterine tone was noted to be poor, where we proceeded with 10u of intrauterine pitocin, IM Methergine and IV TXA. Excellent tone was noted. We continued to survey the site of previous bladder flap, where there was some adherent clot at the superior margin of the bladder with an associated left-sided hematoma. This did not extend to the pelvic sidewall nor broad ligament. No active bleeding was not ed nor was expansion of hematoma noted after visualization for several minutes. Attention was turned to the bilateral adnexa, where both were unremarkable in appearance. Posterior uterine body was inspected, where no defect nor source of bleeding posterior to the uterus was noted. The bowel was gently packed away, pericolic gutters were both unremarkable and hemostatic. Irrigation was completed with no active oozing noted. The pelvis was inspected for several minutes with no apparent reaccumulation of hemoperitonum. Gilmar O retractor was subsequently removed to continue survey. The superior aspect of the rectus abdominis fascia was grasped and elevated. The muscle body was noted to be hemostatic, fascia intact. Adeline clamps were moved to the interior aspect of the rectus fascia, where small clot was noted to be adherent to the underlying muscle (right > left) where one oozing vessel on the right was visualized and coagulated with electrocautery. Repeat pelvic survey was then completed with again no apparent source of bleeding nor reaccumulation of hemoperitoneum. At this time, reading Radiology report became available and I requested to speak with reading radiologist regarding their findings. They affirmed the presence of large volume hemoperitoneum, with source of active bleeding described as a left-sided vessel anterior to the bladder. He affirmed that this was not the left uterine vessels, nor did it appear to be a vaginal vessel but could not specify whether this represented a distal branch of these. I explained our intra-operative findings, where no active bleeding was noted and our survey anterior to the bladder is unremarkable. I inquired if this bleeding vessel appeared amenable to IR guided embolization, where he felt it likely would be however this service is not available at our facility. We again completed a detail survey of the pelvis, with particular attention paid to the left hysterotomy, broad ligament, bladder flap and space of Retzius. The previously noted adherent clot on the superior bladder was stable with no interval increase in size in hematoma. Excellent hemostasis was noted throughout. All instrument and laparotomy sponges were then removed. The subfascial tissues were carefully inspected and hemostasis assured. The fascia was reapproximated in a running fashion with a looped 0 Maxon suture. The subcutaneous tissues were copiously irrigated and hemostasis assured. The subcutaneous adipose layer was reapproximated with interrupted sutures of 2-0 vicryl. The skin was closed in a subcuticular fashion with 3-0 monocryl. Surgical glue and a dressing were applied. The patient tolerated the procedure well. Sponge, lap, needle, instrument counts were reported as correct. Patient received a total of 4 u pRBCs, 1u cryoprecipitate and 1u of FFP throughout the course of MTP. The initial Hgb from start of case was noted to be 5.7, subsequently improved to 8.3 at completion of case. Platelets were stable at 316, INR of 1.03, aPTT of 27 and fibrinogen of 316. She was maintained on a phenylephrine infusion for BP support initially, but was successfully weaned off this and was noting to maintain normal BPs (120s systolic) with HR in the 70s as we were closing. Given the need for possible ongoing transfusion and potential need for IR embolization (given inconsistency in imaging and intra-operative findings) decision was made to proceed with transfer to a tertiary care center. Please see subsequent transfer note. Patient was extubated successfully in the OR. Prior to transfer, her BP was noted to be 140/100 with HR in the 70s. She was fatigued following anesthetic but was noted to be mentating appropriately. Explained plan for transfer of care, she expressed understanding. Debrief was completed with the family. Patient was ultimately transferred immediately from OR to awaiting Ambulance given immediate availability vs awaiting flight crew. EMS report given. QBL 2180mL, with transfusion of blood products noted above in addition to 2L of crystalloid. No specimens sent.
--- NOTE | 2024-01-16 00:38 | PC.NURSE ---
All times are on 01/15/24 MTP called at 2145 1 unit PRBC given on OB 2nd unit given rapidly in OR starting at 2150 3rd unit started rapidly in OR starting at 2216 4th unit started rapidly in OR starting at 2256 Cryo started rapidly in OR at 2228 FFP Started rapidly in OR at 2247 MTP complete at 2304 Unit that is issued but not documented on, was sent with request of EMS Air Conditioning Technician. See there documentation if administered and times PRN
--- NOTE | 2024-01-16 01:07 | PM.DST ---
Transfer Discharge Sum: Prov Provider Time Seen by Provider: 00:00 Date Seen: 01/16/24 Date of admission: 01/14/24 02:02 Primary care physician: Magalys Lopez MD Consults: 01/14/24 01:34 Consult to Consumer Analyst [CONS] Routine Comment: Reason for Consult:: Abuse, Neglect Potential 01/14/24 08:30 Consult to Physician [CONS] Routine Comment: Consulting Provider: Gege Carrasco Has provider been notified: Yes Attending physician on discharge: Gege Carrasco Discharging clinician: Gege Carrasco Anticipated date of transfer: 01/16/24 Receiving physician/facility: Dr. Renee, [facility] DS: Diagnosis Discharge Diagnosis (1) Hemoperitoneum: Status: Acute (2) Acute blood loss anemia: Status: Acute (3) Pre-eclampsia, severe: Status: Acute (4) care following delivery: Status: Acute Transfer Discharge Sum: Med Medications Active and Home Medications: Home Medications No Known Home Medications 02/12/23 [History Confirmed 01/14/24] Transfer Discharge Sum: Hosp Hospital Course Hospital course: Melissa Talavera is a 18 year old female admitted on 01/14/[address] Magalys Lopez ([facility]) for IOL in the setting of preeclampsia with severe features (sustained SRBP necessitating treatment). Intrapartum course was significant for nonreassuring heart tones remote from delivery prompting a primary delivery. Her delivery was previously uncomplicated (QBL 684mL), however she failed to meet appropriate postoperative milestones on postoperative day 1 with note of downtrending hemoglobin. Ultimately, return to the operating room for exploratory laparotomy was performed in the setting of suspected ongoing intra-abdominal bleeding. No source of active bleeding was identified, however we did address oozing at the right margin of the hysterotomy and inferior right rectus abdominus muscles. Adherent clot and a left-sided hematoma was noted at the superior bladder, this was noted to be non expanding with no active bleeding. Radiology report was verbally provided, where source of suspected active bleeding was anterior to the bladder on the left. There was no evidence of active bleeding at time of surgery at this or any other site. Massive transfusion protocol was initiated in the setting of acute blood loss anemia, where she ultimately received 4 units of packed red blood cells, 1 unit of FFP and 1 unit of cryoprecipitate. At completion of case, her hemoglobin was noted to have improved to 8.3 with unremarkable coags. Patient was hemodynamically stable on no pressor support, was successfully extubated in the operating room prior to transport. Most recent vitals prior to transfer were 140s/100s, HR 70s and satting >95% on room air. Decision was made to proceed with emergent transfer of care to a tertiary care center, [facility], given potential need for Interventional Radiology Services and/or further transfusion of blood products. Accepting physician was Dr. Ember Renee. Patient was transferred via ground given immediate availability of an ambulance, verses awaiting transfer by air. She was hemodynamically stable for transport prior to dismissal. Plan of care was reviewed with patient, with thorough deep briefing provided to family prior to transport. Time Spent with Patient Time attestation: Total time spent providing and/or coordinating transfer services: Total time spent: Greater than 30 minutes Exam Narrative: Exam Narrative: General: Alert though fatigued s/p general anesthetic, appropriate response to questioning Abdomen: Soft, non-distended VS reviewed. Const: Vital Signs, click to edit/add: Vital Signs - 24 hr 01/15/24 01:08 01/15/24 01:23 01/15/24 01:37 Temperature 98.1 F 97.9 F 98.1 F Pulse Rate Pulse Rate [Pulse Oximeter] 77 76 71 Respiratory Rate 14 14 14 Blood Pressure Blood Pressure [Le ft Arm] 154/104 H 153/94 H 154/99 H Pulse Oximetry 97 Oxygen Delivery Me thod 01/15/24 01:41 01/15/24 01:52 01/15/24 02:07 Temperature 98.2 F Pulse Rate Pulse Rate [Pulse Oximeter] 76 76 Respiratory Rate 14 14 14 Blood Pressure Blood Pressure [Le ft Arm] 158/104 H 151/97 H Pulse Oximetry Oxygen Delivery Me thod 01/15/24 02:23 01/15/24 02:38 01/15/24 02:48 Temperature 98.9 F 98.9 F Pulse Rate Pulse Rate [Pulse Oximeter] 77 77 Respiratory Rate 14 14 Blood Pressure Blood Pressure [Le ft Arm] 164/112 H 146/89 H 165/103 H Pulse Oximetry 97 Oxygen Delivery Me thod 01/15/24 02:58 01/15/24 03:08 01/15/24 03:18 Temperature Pulse Rate Pulse Rate [Pulse Oximeter] Respiratory Rate Blood Pressure Blood Pressure [Le ft Arm] 143/88 H 143/87 H 135/87 Pulse Oximetry Oxygen Delivery Me thod 01/15/24 03:28 01/15/24 03:38 01/15/24 03:48 Temperature Pulse Rate Pulse Rate [Pulse Oximeter] Respiratory Rate Blood Pressure Blood Pressure [Le ft Arm] 132/86 141/93 H 129/81 Pulse Oximetry Oxygen Delivery Me thod 01/15/24 04:03 01/15/24 04:22 01/15/24 04:37 Temperature 98.3 F Pulse Rate Pulse Rate [Pulse Oximeter] 98 Respiratory Rate 14 Blood Pressure Blood Pressure [Le ft Arm] 143/88 H 134/85 136/87 Pulse Oximetry Oxygen Delivery Me thod 01/15/24 04:49 01/15/24 05:23 01/15/24 05:57 Temperature Pulse Rate Pulse Rate [Pulse Oximeter] Respiratory Rate Blood Pressure Blood Pressure [Le ft Arm] 123/81 123/81 131/66 [facility] 06:58 01/15/24 08:22 01/15/24 08:25 Temperature 98.6 F Pulse Rate Pulse Rate [Pulse Oximeter] Respiratory Rate 14 Blood Pressure Blood Pressure [Le ft Arm] 142/89 H 150/94 H Pulse Oximetry 98 Oxygen Delivery Me od Room Air 01/15/24 08:25 01/15/24 09:25 01/15/24 09:25 Temperature Pulse Rate Pulse Rate [Pulse Oximeter] 94 Respiratory Rate 14 16 Blood Pressure Blood Pressure [Le ft Arm] 148/91 H Pulse Oximetry Oxygen Delivery Me thod 01/15/24 10:00 01/15/24 10:25 01/15/24 11:15 Temperature Pulse Rate Pulse Rate [Pulse Oximeter] 105 H 94 Respiratory Rate 16 Blood Pressure Blood Pressure [Le ft Arm] 138/88 130/84 Pulse Oximetry Oxygen Delivery Me thod 01/15/24 11:25 01/15/24 12:16 01/15/24 13:16 Temperature Pulse Rate Pulse Rate [Pulse Oximeter] Respiratory Rate 16 18 18 Blood Pressure Blood Pressure [Le ft Arm] Pulse Oximetry Oxygen Delivery Me thod 01/15/24 14:16 01/15/24 14:20 01/15/24 15:16 Temperature Pulse Rate Pulse Rate [Pulse Oximeter] 85 Respiratory Rate 18 18 Blood Pressure Blood Pressure [Le ft Arm] 128/90 H Pulse Oximetry Oxygen Delivery Me thod 01/15/24 15:20 01/15/24 16:16 01/15/24 17:16 Temperature Pulse Rate Pulse Rate [Pulse Oximeter] 98 Respiratory Rate 18 18 Blood Pressure Blood Pressure [Le ft Arm] 138/82 Pulse Oximetry 97 Oxygen Delivery Me thod 01/15/24 17:21 01/15/24 18:16 01/15/24 18:41 Temperature Pulse Rate Pulse Rate [Pulse Oximeter] 85 103 H Respiratory Rate 16 Blood Pressure Blood Pressure [Le ft Arm] 109/71 105/70 Pulse Oximetry Oxygen Delivery Me thod 01/15/24 19:30 01/15/24 19:57 01/15/24 20:09 Temperature 98.9 F 97.8 F 98.1 F Pulse Rate 100 100 Pulse Rate [Pulse Oximeter] 97 Respiratory Rate 18 14 14 Blood Pressure 79/54 L 102/71 Blood Pressure [Le ft Arm] 115/77 Pulse Oximetry 98 98 97 Oxygen Delivery Me thod Room Air 01/15/24 20:13 Temperature 98.3 F Pulse Rate 100 Pulse Rate [Pulse Oximeter] Respiratory Rate 14 Blood Pressure 102/74 Blood Pressure [Le ft Arm] Pulse Oximetry 99 Oxygen Delivery Me thod Discharge Plan Discharge Disposition: [facility] Discharge Location: [facility] Date of Admission: 01/14/24 02:02 Attending Provider on Discharge: Gege Carrasco Primary Care Provider: Magalys Lopez I Condition: Improved Discharge Orders: Transfer of Care to Other Hospital (ORDER); Ordered 01/15/24 Ordered By: Gege Carrasco Oxygen: No Urinary Catheter: Yes Services not available here: Interventional Radiology
--- NOTE | 2024-01-16 01:41 | PC.NURSE ---
Brayden PRATT updated on Pt not receiving Rhogam during this admission. Provider notes also send via fax.
--- NOTE | 2024-01-16 10:19 | P.NB_ITS ---
Nerve Block Nerve Block Time Seen by Provider: 00:15 Date Seen: 01/15/24 Type of block requested by surgeon for post-operative analgesia: TAP Side: bilateral Time out performed: Yes Verification of patient name: Yes Verification of date of : Yes Name of person performing procedure: Herouc Continuous monitoring Was continuous monitoring of O2 sat, B/P, youth nutritional monitor, recorded every 15 minutes?: Yes Procedure Checklist: sterile prep, needles and gloves Ultrasound guided. Images saved: Yes Medications given in 5ml increments after negative aspiration: Marcaine %: 0.25 mL: 30 Needle gauge: 21 and Exparel mL: 10 Needle gauge: 21 Patient tolerated procedure well: Yes Block Charges Block Charge (with Pro Fee): TAP Bilateral Use of Ultrasound Machine for Block: Yes- US Guidance/pain block
== END 2024-01-15 23:55 | disposition short-term general hospital (02) | DRG 540 ==
LOC: OB OUT 02:02 → OB 02:02
PROVIDERS: Admitting Provider Family Medicine; PCP Family Medicine; Visit Provider Obstetrics & Gynecology
PROC: 10D00Z1 Extraction of Products of Conception, Low, Open Approach (ICD-10-PCS; CPT 59514; principal; 2024-01-14 23:00)
PROC: 0WJG0ZZ Inspection of Peritoneal Cavity, Open Approach (ICD-10-PCS; CPT 49320; principal; 2024-01-15 21:30)
DX: O60.14X0 Preterm labor third trimester with preterm delivery third trimester, not applicable or unspecified (principal); O14.14 Severe pre-eclampsia complicating childbirth; O76 Abnormality in fetal heart rate and rhythm complicating labor and delivery; R07.9 Chest pain, unspecified; R42 Dizziness and giddiness; R10.84 Generalized abdominal pain; K66.1 Hemoperitoneum; R55 Syncope and collapse; O90.81 Anemia of the puerperium; D62 Acute posthemorrhagic anemia; G89.18 Other acute postprocedural pain; I97.620 Postprocedural hemorrhage of a circulatory system organ or structure following other procedure; O9A.32 Physical abuse complicating childbirth; Y07.031 Male partner, former, perpetrator of maltreatment and neglect; Z37.0 Single live birth; Z3A.36 36 weeks gestation of pregnancy
CPT/HCPCS: 00840; 01967; 01968; 36415; 36430; 59200; 64488; 74177; 76815; 76942; 80048; 81001; 81003; 82330; 82565; 82570; 83735; 84156; 84450; 84460; 84484; 84520; 85025; 85027; 85384; 85461; 85610; 85730; 86592; 86850; 86870; 86880; 86900; 86901; 86922; 87081; 87086; 87653; 88307; 99140; A9270; C1726; C9290; J0290; J0330; J0360; J0456; J0665; J0690; J0702; J1885; J2210; J2270; J2274; J2371; J2405; J2590; J2704; J2795; J3010; J3475; J3490; J7050; J7120; P9012; P9016; P9017; Q9967

== ENCOUNTER 2024-01-15 23:44 | Outpatient (CLI) | payer BC, SELFPAY | END 2024-01-15 23:45 | disposition home or self-care (01) | LOC: AMB 01-28 15:05 | PROVIDERS: PCP Family Medicine; Visit Provider Student in an Organized Health Care Education/Training Program | DX: K66.1 Hemoperitoneum (principal); D62 Acute posthemorrhagic anemia; Z39.2 Encounter for routine postpartum follow-up | CPT/HCPCS: A0425; A0434 ==

== ENCOUNTER 2024-01-30 16:11 | Outpatient (CLI) | payer BC, SELFPAY | END 2024-01-30 16:12 | disposition home or self-care (01) | PROVIDERS: PCP Family Medicine; Visit Provider Obstetrics & Gynecology | DX: D75.839 Thrombocytosis, unspecified (principal) | CPT/HCPCS: 80048 ==

== ENCOUNTER 2024-09-17 11:36 | Emergency (ER) | payer BC, SELFPAY ==
[2024-09-17 11:42] VITALS: BP 144/75; PULSE 66; RESP 18; TEMP 36.8; O2SAT 97; BMI 17.5
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
== END 2024-09-17 12:14 | disposition home or self-care (01) ==
LOC: ED 12:09
PROVIDERS: Emergency Provider Family Medicine; PCP Family Medicine
DX: H11.9 Unspecified disorder of conjunctiva (principal)
CPT/HCPCS: 99282; 99283

== ENCOUNTER 2025-04-15 20:07 | Emergency (ER) | payer BC, SELFPAY ==
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
--- OUTSIDE RECORDS SUMMARY | 2025-04-15 20:10 | XMS_ITS | Clinical Summary ---
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 [facility] de Phone Number [facility] [address] [place] [address] * (ABNORMAL) SALICYLATE (02/26/2025 12:50 AM CDT) SALICYLATE <0.5(L) 15.0 - 30.0 mg/dL 02/26/2025 1:28 AM CDT [facility] Blood BLOOD SPECIMEN / Unknown Butterfly / Unknown 02/26/2025 12:50 AM CDT 02/26/2025 1:06 AM CDT us Alisia Xiao MD CHEMISTRY Final Result Performing Organization Address City/[facility]/ZIP Co de Phone Number [facility] [address] [place] [address] * (ABNORMAL) COMP METABOLIC PANEL (02/26/2025 12:50 AM [facility]) Only the most recent of2 resultswithin the time period is included. SODIUM 139 136 - 145 mmol/L 02/26/2025 1:27 AM [facility] POTASSIUM 3.6 3.5 - 5.1 mmol/L 02/26/2025 1:27 AM [facility] CHLORIDE 102 98 - 107 mmol/L 02/26/2025 1:27 AM [facility] CO2,TOTAL 28 22 - 29 mmol/L 02/26/2025 1:27 AM [facility] ANION GAP 9 5 - 18 02/26/2025 1:27 AM [facility] GLUCOSE 90 70 - 99 mg/dL 02/26/2025 1:27 AM [facility] CALCIUM 9.7 8.8 - 10.4 mg/dL 02/26/2025 1:27 AM [facility] Comment: Reference ranges for this test were updated on 09/25/2024 to reflect our healthy population more accurately. Reference range changes are not retroactively applied to results, but previous results using the same methodology can be interpreted in the context of the new reference range. BUN 10 6 - 20 mg/dL 02/26/2025 1:27 AM [facility] CREATININE 0.74 0.50 - 0.90 mg/dL 02/26/2025 1:27 AM [facility] BUN/CREAT RATIO 14 10 - 20 1:27 AM [facility] eGFR >90 >90 mL/min/1.7 3m2 02/26/2025 1:27 AM [facility] Comment:As of 2022, eG FR is calculated by the CKD-EPI creatinine equation without race adjustment. eGFR can be influenced by muscle mass, exercise, and diet. The reported eGFR is an estimation only and is only applicable if the renal function is stable. ALBUMIN 4.4 4.0 - 4.9 g/dL 02/26/2025 1:27 AM [facility] PROTEIN,TOTAL 6.7 6.0 - 8.0 g/dL 02/26/2025 1:27 AM CDT [facility] BILIRUBIN,TOTAL 0.5 0.0 - 1.2 mg/dL 02/26/2025 1:27 AM CDT [facility] ALK PHOSPHATASE 60 35 - 104 IU/L 02/26/2025 1:27 AM CDT [facility] ALT (SGPT) 45(H) 10 - 35 IU/L 02/26/2025 1:27 AM CDT [facility] AST (SGOT) 14 10 - 35 IU/L 02/26/2025 1:27 AM CDT [facility] Blood BLOOD SPECIMEN / Unknown Butterfly / Unknown 02/26/2025 12:50 AM CDT 02/26/2025 1:06 AM CDT us Alisia Xiao MD CHEMISTRY Final Result Performing Organization Address City/[facility] Co de Phone Number [facility] [address] [place] [address] * EKG 12 LEAD (02/26/2025 12:33 AM CDT) Pathologist [facility] Interpretation Normal sinus rhythm Normal ECG When compared with ECG of 16-Mar-2019 10:28, MANUAL COMPARISON REQUIRED PREVIOUS ECG IS INCOMPATIBLE BEYOND NOW Ventricular Rate 73 BPM BEYOND NOW Atrial Rate 73 BPM BEYOND NOW P-R Interval 150 ms BEYOND NOW QRS Duration 90 ms BEYOND NOW QT 394 ms BEYOND NOW QTc 434 ms BEYOND NOW P [place] 54 degrees BEYOND NOW R [place] 56 degrees BEYOND NOW T [place] 38 degrees BEYOND NOW 02/26/2025 12:3 3 AM CDT 02/26/2025 5:22 AM CDT us Alisia Xiao MD EKG ORD Final Result Performing Organization Address [facility] Co de Phone Number BEYOND NOW [place], [place] * STAT Drug Screen (02/19/2025 6:45 PM CDT) Pathologist [facility] ACETAMINOPHEN URINE NEG <=10 mcg/mL 02/20/2025 1:19 AM [facility] AMPHETAMINE URINE NEG <=500 ng/mL 02/20/2025 1:19 AM [facility] BARBITURATE URINE NEG <=200 ng/mL 02/20/2025 1:19 AM [facility] BENZODIAZEPINE URINE NEG <=100 ng/mL 02/20/2025 1:19 AM [facility] BUPRENORPHRINE URINE NEG <=5 ng/mL 02/20/2025 1:19 AM [facility] COCAINE METAB URINE NEG <=300 ng/mL 02/20/2025 1:19 AM [facility] ETHANOL URINE NEG <=10 mg/dL 02/20/2025 1:19 AM [facility] FENTANYL URINE NEG <=5 ng/mL 02/20/2025 1:19 AM [facility] METHADONE URINE NEG <=300 ng/mL 02/20/2025 1:19 AM [facility] OPIATES URINE NEG <=300 ng/mL 02/20/2025 1:19 AM [facility] OXYCODONE URINE NEG <=100 ng/mL 02/20/2025 1:19 AM [facility] PCP URINE NEG <=25 ng/mL 02/20/2025 1:19 AM [facility] SALICYLATE URINE NEG <=10 mg/dL 02/20/2025 1:19 AM [facility] THC 50 URINE NEG <=50 ng/mL 02/20/2025 1:19 AM [facility] MASS SPECTROMETRY URINE See Below 02/20/2025 1:19 AM [facility] Comment:Citalopram present. Urine URINE SPECIMEN / Unknown Non-Blood / Unknown 02/19/2025 6:45 PM CDT 02/19/2025 6:57 PM [facility] - 02/20/2025 1:19 AM CDT Release to patient->Immediate us Ashleigh Curiel Labreche SENIOR APPLICATIONS ENGINEER URINE Final Re sult [facility] [address] [place] [address], [place] * (ABNORMAL) Urinalysis w Reflex Microscopic if Positive (02/19/2025 6:45 PM CDT) COLOR Yellow Yellow Color 02/19/2025 7:05 PM CDT [facility] CLARITY Clear Clear Clarity 02/19/2025 7:05 PM CDT [facility] SPECIFIC GRAVITY,URINE <=1.005(A) 1.010, 1.015, 1.020, 1.025 02/19/2025 7:05 PM CDT [facility] PH,URINE 6.5 6.0, 7.0, 8.0, 5.5, 6.5, 7.5, 8.5 02/19/2025 7:05 PM CDT [facility] UROBILINOGEN, QUALITATIVE Normal Normal EU/dl 02/19/2025 7:05 PM CDT [facility] PROTEIN, URINE Negative Negative mg/dL 02/19/2025 7:05 PM CDT [facility] GLUCOSE, URINE Negative Negative mg/dL 02/19/2025 7:05 PM CDT [facility] KETONES,URINE Negative Negative mg/dL 02/19/2025 7:05 PM CDT [facility] BILIRUBIN,URI NE Negative Negative 02/19/2025 7:05 PM CDT [facility] OCCULT BLOOD,URINE Negative Negative 02/19/2025 7:05 PM CDT [facility] NITRITE Negative Negative 02/19/2025 7:05 PM CDT [facility] LEUKOCYTE ESTERASE Negative Negative 02/19/2025 7:05 PM CDT [facility] Urine URINE SPECIMEN / Unknown Non-Blood / Unknown 02/19/2025 6:45 PM CDT 02/19/2025 6:57 PM CDT us Ashleigh Curiel Labreche SENIOR APPLICATIONS ENGINEER URINE Final Re sult [facility] [address] [place] [address], * (ABNORMAL) CBC WITH AUTO DIFFERENTIAL (02/19/2025 8:40 AM CDT) WHITE BLOOD COUNT 8.1 4.5 - 11.0 thou/cu mm 02/19/2025 10:28 AM CDT [facility] RED BLOOD COUNT 4.54 4.00 - 5.20 mil/cu mm 02/19/2025 10:28 AM CDT [facility] HEMOGLOBIN 13.4 12.0 - 16.0 g/dL 02/19/2025 10:28 AM CDT [facility] HEMATOCRIT 40.2 33.0 - 51.0 % 02/19/2025 10:28 AM CDT [facility] MCV 89 80 - 100 fL 02/19/2025 10:28 AM CDT [facility] MCH 29.5 26.0 - 34.0 pg 02/19/2025 10:28 AM CDT [facility] MCHC 33.3 32.0 - 36.0 g/dL 02/19/2025 10:28 AM CDT [facility] RDW 12.1 11.5 - 15.5 % 02/19/2025 10:28 AM CDT [facility] PLATELET COUNT 383 140 - 440 thou/cu mm 02/19/2025 10:28 AM CDT [facility] MPV 10.3 6.5 - 11.0 fL 02/19/2025 10:28 AM CDT [facility] NRBC 0.0 % 02/19/2025 10:28 AM CDT [facility] ABS NRBC 0.0 thou /cu mm 02/19/2025 10:28 AM CDT [facility] % NEUT 49.4 % 02/19/2025 10:28 AM CDT [facility] % LYMPH 37.6 % 02/19/2025 10:28 AM CDT [facility] % MONO 6.1 % 02/19/2025 10:28 AM CDT [facility] % EOS 5.9 % 02/19/2025 10:28 AM CDT [facility] % BASO 0.6 % 02/19/2025 10:28 AM CDT [facility] % IMMATURE GRAN (METAS,MYELOS,UT OS) 0.4 % 02/19/2025 10:28 AM CDT [facility] ABSOLUTE NEUTROPHILS 4.0 1.7 - 7.0 thou/cu mm 02/19/2025 10:28 AM CDT [facility] ABSOLUTE LYMPHOCYTES 3.0(H) 0.9 - 2.9 thou/cu mm 02/19/2025 10:28 AM CDT [facility] ABSOLUTE MONOCYTES 0.5 <0.9 thou/cu mm 02/19/2025 10:28 AM CDT [facility] ABSOLUTE EOSINOPHILS 0.5(H) <0.5 thou/cu mm 02/19/2025 10:28 AM CDT [facility] ABSOLUTE BASOPHILS 0.1 <0.3 thou/cu mm 02/19/2025 10:28 AM T [facility] ABSOLUTE IMMATURE GRANULOCYTES(MET ,MYELOS,PROS) 0.0 <0.3 thou/cu mm 02/19/2025 10:28 AM CDT [facility] Blood BLOOD SPECIMEN / Unknown Venipuncture / Unknown 02/19/2025 8:40 AM CDT 02/19/2025 8:52 AM CDT us Jce A L Labreche SENIOR APPLICATIONS ENGINEER HEMATOLOGY Final Re sult [facility] [address] [place] [address], [place] * GC & CHLAMYDIA DNA PCR [[id number]] (11/23/2023 4:25 PM [employer]ER) CHLAMYDIA PROBE Negative 6:03 PM [employer]ILS LOADER [facility] N GONORRHOEAE PROBE Negative 11/24/2023 6:03 PM [employer]S LOADER [facility] Other VAGINAL SWAB / Unknown Non-Blood / Unknown 11/23/2023 4:25 PM [employer]ER 11/23/2023 4:28 PM [employer]ER Ignacia Fishman DO MICROBIOLOGY Final Resu lt [facility] [address] [place] [address], * ANTI HCV (08/08/2023 5:16 PM CDT) Pathologist [facility] [place] HEPATITIS C ANTIBODY Non-Reacti ve Non-React gregoria 08/10/2023 9:14 AM CDT [facility] Comment:Please note, per www .CDC.gov: If a patient is known to be at high risk of HCV infection, or is symptomatic, and the physician's suspicion of HCV infection is high, HCV RNA testing is often employed and is of diagnostic value, even after an initial negative anti-HCV test result. Blood BLOOD SPECIMEN / Unknown Venipuncture / Unknown 08/08/2023 5:16 PM CDT 08/08/2023 5:16 PM CDT Magalys Lopez MD SEND OUTS Final Resul t [facility] SENDOUT [place]NAL ZIP [address] [place] [id number] * ANTI HIV 1/2 (08/08/2023 5:16 PM CDT) Pathologist [facility] [place] HIV-1/HIV-2 SCREEN Non-Reacti ve Non-Reacti ve 08/09/2023 6:18 PM CDT [facility] Comment:HIV-1 p24 and HIV-1/ HIV-2 Ab Not Detected. Blood BLOOD SPECIMEN / Unknown Venipuncture / Unknown 08/08/2023 5:16 PM CDT 08/08/2023 5:16 PM CDT us Magalys Lopez MD SEND OUTS Final Resul t [facility] 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
[2025-04-15 20:17] VITALS: BP 127/81; PULSE 100; RESP 16; TEMP 36.6; O2SAT 100; BMI 20.8
--- NOTE | 2025-04-15 20:20 | ED_ITS ---
HPI - General Adult General Time Seen by Provider: 20:21 Date Seen: 04/15/25 Chief complaint: Nausea/Vomiting Stated complaint: cramps/ throwing up can't keep food down Time Seen by Provider: 04/15/25 20:10 Source: patient and RN notes reviewed Mode of arrival: ambulatory Limitations: no limitations History of Present Illness HPI narrative: This 19-year-old female is coming in with concerns nausea and vomiting. She did go to urgent care on April 09, had negative COVID and influenza swab. She had had URI symptoms for about 2 weeks prior. She was given Zofran, had Zofran at home for further nausea vomiting. She is unsure of her last menstrual period, a test almost the day after being seen in urgent care and came back positive. She thinks her last menstrual period may have been early January but is unsure. She had severe preeclampsia with her last , is worried about this. She is wondering about possibly getting dating for the , she wonders how far along she is. She denies any urinary symptoms and is still urinating. She tells me that she is hungry and can eat but then immediately vomits it back up. She has noted some shooting pains in her abdomen, she calls them lightening cramps. Her mom told her it was likely because her uterus was expanding. She denies any vaginal discharge or bleeding. She thinks she may champion ve had a temperature this morning but it went away. Related Data Home Medications ?Medication ?Instructions ?Recorded ?Confirmed citalopram 20 mg tablet 20 mg PO DAILY 04/09/2503/22 quetiapine 50 mg tablet mg PO 04/09/25 04/09/25 Allergies Allergy/AdvReac Type Severity Reaction Status Date / Time coconut Allergy Intermediate Verified 04/15/25 20:21 Review of Systems Status of ROS: Reports: 6 or more systems reviewed and unremarkable except as noted in History and below [facility] Surgical History History of exploratory laparotomy (01/16/24) ?Z98.890 - Other specified postprocedural states (ICD-10) History of section (01/14/24) ?Z98.891 - History of uterine scar from previous surgery (ICD-10) Family History Mother Anxiety Father Drug abuse Bipolar disorder Brother Drug abuse Asthma Maternal Grandfather Drug abuse Uncle Alcohol dependence Maternal Grandmother Alcohol dependence Paternal Grandmother Lupus Diabetes Social History What is your current living situation?: I have a place to live at present, but am concerned about future Problems where you live: no known problems In the past 12 months, utilities in danger of being shut off: no In past 12 months, lack of transportation kept you from medical appts, meetings, work, or getting things needed for daily living: yes In the past 12 mos, have been you worried that your food would run out before you had money to buy more?: never true In the past 12 mos, the food you bought just didn't last and you didn't have money to buy more?: never true Smoking Status: Never smoker How often do you have a drink containing alcohol: never How often do you have six or more drinks on one occasion: Never AUDIT-C Alcohol total score: 0 Non-prescribed substance use: denies use How often does anyone, including family, friends and others, physically hurt you : fairly often How often does anyone, including family, friends and others, insult or talk down to you: sometimes How often does anyone, including family, friends and others, threaten you with harm: sometimes How often does anyone, including family, friends and others, scream or curse at you: fairly often Health Related Social Needs: housing instability, housed, with risk of homelessness (Z59.811), transportation insecurity (Z59.82) and Other personal risk factors, not elsewhere classified (Z91.89) Exam Const: Vital Signs, click to edit/add: Vital Signs - 24 hr 04/15/25 20:17 Temperature 97.9 F Pulse Rate [Pulse Oximeter] 100 Respiratory Rate 16 Blood Pressure [Ri ght Upper Arm] 127/81 Pulse Oximetry 100 Oxygen Delivery Me thod Room Air This 19-year-old female is alert, interactive, no apparent distress. She is very pleasant. Sclera clear, symmetrical facial function, oropharynx normal. Neck is supple, no masses, no adenopathy, no thyromegaly masses or nodules. Lungs are clear, good air entry, no wheezing crackles, no tachypnea. CV regular rate and rhythm, no murmur, normal S1-S2, no S3-S4. Abdomen is flat, nontender, nondistended, do not feel any organomegaly, certainly no rebound or guarding. She has no lower extremity edema. She is ambulatory into the ED of her own accord. Documenting provider has reviewed patient's vital signs: yes Course Course ED Course: Patient will have IV established, obtain initial L of normal saline, 4mg IV Zofran. Need to have basic labs done, will include UA to look at specific gravity and ketones, ensure no occult UTI. We will order a limited OB ultrasound to ensure intrauterine and help establish dating. Reevaluation(s) Time of Reevaluation #1: 22:03 Reevaluation #1: Have reviewed the ultrasound report with patient, reassured her that her labs are looking good. She is out of Zofran at home. I can send some in to the pharmacy for her but will also give her some from [facility] (the 10 tablets it has) to get her through until she can get to the pharmacy. She understands she also needs get an [facility]. Vital Signs Vital signs: Initial Vital Signs Temperature 97.9 F 04/15/25 20:17 Temperature Source Temporal Artery Scan 04/15/25 20:17 Pulse Rate 100 04/15/25 20:17 Respiratory Rate 16 04/15/25 20:17 Blood Pressure 127/81 04/15/25 20:17 Blood Pressure Mean 96 04/15/25 20:17 Blood Pressure Position Sitting 04/15/25 20:17 Pulse Oximetry 100 04/15/25 20:17 Oxygen Delivery Method Room Air 04/15/25 20:17 Vital Signs Temperature 97.9 F 04/15/25 20:17 Pulse Rate 100 04/15/25 20:17 Respiratory Rate 16 04/15/25 20:17 Blood Pressure 127/81 04/15/25 20:17 Pulse Oximetry 100 04/15/25 20:17 Oxygen Delivery Method Room Air 04/15/25 20:17 Temperature 97.9 F 04/15/25 20:17 Pulse Rate 100 04/15/25 20:17 Respiratory Rate 16 04/15/25 20:17 Blood Pressure 127/81 04/15/25 20:17 Pulse Oximetry 100 04/15/25 20:17 Oxygen Delivery Method Room Air 04/15/25 20:17 Medications Administered Medications: Generic Name Dose Route Start Last Admin Trade Name Odilia PRN Reason Stop Dose Admin Sodium Chloride 1,000 mls @ 500 mls/hr 04/15/25 20:27 04/15/25 21:07 0.9 % Sodium Chloride 1000 Ml IV 04/15/25 22:26 500 mls/hr .Q2H TOBIAS Administration Discontinued Medications Generic Name Dose Route Start Last Admin Trade Name Freq PRN Reason Stop Dose Admin Ondansetron HCl 4 mg 04/15/25 20:26 04/15/25 20:41 Ondansetron 2 Mg/Ml Inj IVP 04/15/25 20:27 4 mg ONCE ONE Administration Medical Decision Making Lab Data Lab results reviewed: Yes I reviewed the patient's lab results Labs: Lab Results 04/15/25 04/15/25 Range/Units 20:25 20:39 WBC 14.19 H (4.50-11.00) K/uL RBC 4.49 (4.00-5.20) m/uL Hgb 13.0 (12.0-16.0) gm/dL Hct 40.1 (33.0-51.0) % MCV 89 (80-100) fL MCH 29 (26-34) pg MCHC 32 (32-36) gm/dL RDW Coeff of Nathalie 12.6 (11.5-15.5) % Plt Count 367 (140-440) K/uL Neut % (Auto) 71.4 (42.0-72.0) % Lymph % (Auto) 18.5 L (20-44) % Stafford % (Auto) 5.1 (0.0-11.0) % Eos % (Auto) 4.3 (0.0-7.0) % Baso % (Auto) 0.5 (0.0-3.0) % Neut # (Auto) 10.10 H (1.7-7.0) K/uL Lymph # (Auto) 2.60 (0.90-2.90) K/uL Stafford # (Auto) 0.70 (0.00-0.90) K/UL Eos # (Auto) 0.60 H (0.00-0.50) K/uL Baso # (Auto) 0.10 (0.00-0.30) K/uL Abs Immat Gran (auto) 0.00 (0.00-0.30) K/uL Imm/Tot Granulo (auto) 0.2 % Sodium 137 (135-149) mmol/L Potassium 4.1 (3.6-5.1) mmol/L Chloride 102 (96-114) mmol/L Carbon Dioxide 28 (20-32) mmol/L Anion Gap 7 (7-15) mEq/L BUN 10 (5-24) mg/dL Creatinine 0.7 (0.5-1.5) mg/dL Estimated Creat Clear 113.79 Estimated GFR 126 ml/min Glucose 77 (60-115) mg/dL Calcium 10.1 (8.4-10.6) mg/dL Urine Color Yellow (Yellow) Urine Appearance Clear (Clear) Urine pH 7.0 (5.0-8.5) Ur Specific [place] 1.020 (1.000-1.030) Urine Protein Negative (Negative) Urine Glucose (UA) Negative (Negative) Urine Ketones Negative (Negative) Urine Blood Trace-intact A (Negative) Urine Nitrite Negative (Negative) Urine Bilirubin Negative (Negative) Urine Urobilinogen 1.0 (0.2-1.0) Ur Leukocyte Esterase 1+ A (Negative) Urine RBC 2-5 A (0-2) Urine WBC 10-25 A (0-5) Ur Squamous Epith Cells Moderate A (None-Few) Urine Bacteria Few A (None) Imaging Data US limited OB: Attestation: I have reviewed the pertinent imaging results. Radiologist's impression: Patient: FLORA SOTELO Facility:?[facility] Patient ID:?[id number] Site Patient ID:?[id number]. Site :?[id number] Study:?US-OB Pelvis TA and TV-04/15/2025 9:17:29 PM Ordering Physician:?Afua Bentley Final Report: INDICATION: Cramping, nausea and vomiting, Positive home test, unknown LMP COMPARISON: None TECHNIQUE: First trimester obstetric ultrasound, transabdominal and transvaginal approach utilizing grayscale and color Doppler FINDINGS: Single living intrauterine gestation with crown-rump length measuring 1.05 centimeters consistent with a 7 week and 1 day gestation with estimated delivery date of 12/01/2025. Normal heart rate measuring 144 beats per minute. Normal-appearing yolk sac. No subchorionic hemorrhage. The cervix is unremarkable. The right ovary measures 3.5 x 1.9 x 2.5 cm and contains a corpus luteum measuring 1.5 centimeters in greatest dimension. There is normal arterial and venous color Doppler flow. The left ovary measures 3.0 x 2.0 x 2.3 cm. Physiologic appearance without a dominant cystic lesion or solid ovarian / adnexal mass. There is normal arterial and venous color Doppler flow. No free fluid. IMPRESSION: 1. Single living intrauterine gestation with crown-rump length measuring 1.05 centimeters consistent with a 7 week and 1 day gestation with estimated delivery date of 12/01/2025. 2. No sonographic evidence of any abnormalities. Dictated by Carlos Benitez MD @ 04/15/2025 9:58:16 PM (Electronic Signature) Discharge Plan Discharge Clinical Impression: First trimester Nausea and vomiting Qualifiers: Vomiting type: unspecified Qualified Code(s): R11.2 - Nausea with vomiting, unspecified Patient Disposition: Home, Self-Care Condition: Stable Instructions: Nausea and Vomiting in (ED), at 7 to 10 Weeks (ED) Additional Instructions: Can use Zofran per prescription. Try to separate solids and liquids. Try to make sure that you are drinking frequent small sips of fluids throughout the day. Need to schedule in OB appointment as soon as possible, recommend follow- up within the next week. Ultrasound is reassuring tonight, can bring the report to your follow-up so that they have the information. If you have further concerns or issues, Zofran is not controlling your morning sickness, please seek re-evaluation. Prescriptions: No Action quetiapine 50 mg tablet PO citalopram 20 mg tablet 20 mg PO DAILY Follow Up/Referrals: Magalys Lopez MD [Primary Care Provider, Obstetrics] Stand Alone Forms: [employer] Info Instructions
--- NOTE | 2025-04-15 20:25 | CRLHL7_ITS ---
For Patients: As a result of the Cures Act, medical imaging exams and procedure reports are released immediately into your electronic medical record. You may view this report before your referring provider. If you have questions, please contact your health care provider. INDICATION: Cramping, nausea and vomiting, Positive home test, unknown LMP COMPARISON: None TECHNIQUE: First trimester obstetric ultrasound, transabdominal and transvaginal approach utilizing grayscale and color Doppler FINDINGS: Single living intrauterine gestation with crown-rump length measuring 1.05 centimeters consistent with a 7 week and 1 day gestation with estimated delivery date of 12/01/2025. Normal heart rate measuring 144 beats per minute. Normal-appearing yolk sac. No subchorionic hemorrhage. The cervix is unremarkable. The right ovary measures 3.5 x 1.9 x 2.5 cm and contains a corpus luteum measuring 1.5 centimeters in greatest dimension. There is normal arterial and venous color Doppler flow. The left ovary measures 3.0 x 2.0 x 2.3 cm. Physiologic appearance without a dominant cystic lesion or solid ovarian / adnexal mass. There is normal arterial and venous color Doppler flow. No free fluid. IMPRESSION: 1. Single living intrauterine gestation with crown-rump length measuring 1.05 centimeters consistent with a 7 week and 1 day gestation with estimated delivery date of 12/01/2025. 2. No sonographic evidence of any abnormalities. Dictated by Carlos Benitez MD @ 04/15/2025 9:58:16 PM (Electronically Signed)
[2025-04-15 20:36] LABS: Appearance Urine Clear (Clear); Bilirubin Urine Negative (Negative); Blood Urine Trace-intact (Negative); Color Urine Yellow (Yellow); Glucose Urine Negative (Negative); Ketones Urine Negative (Negative); Leukocyte Esterase Urine 1+ (Negative); Nitrite Urine Negative (Negative); Protein Urine Negative (Negative)
[2025-04-15] MEDS: ONDANSETRON 2 MG/ML inj 4 MG IVP (20:41)
[2025-04-15 20:51] LABS: Basophils Percent Auto 0.5 % (0.0-3.0); Eosinophils Percent Auto 4.3 % (0.0-7.0); Hematocrit 40.1 % (33.0-51.0); Immature Granulocytes Pct Auto 0.2 %; Lymphocytes Percent Auto 18.5 % (20-44); Mean Corpuscular HGB Conc 32 gm/dL (32-36); Mean Corpuscular Hemoglobin 29 pg (26-34); Mean Corpuscular Volume 89 fL (80-100); Monocytes Percent Auto 5.1 % (0.0-11.0); Neutrophils Percent Auto 71.4 % (42.0-72.0); Platelet Count* 367 K/uL (140-440); RDW Coefficient of Variation % 12.6 % (11.5-15.5); Red Blood Count 4.49 m/uL (4.00-5.20); White Blood Count* 14.19 K/uL (4.50-11.00)
[2025-04-15 20:55] LABS: Bacteria Urine Few; Squamous Epithelial Cell Urine Moderate (None-Few)
[2025-04-15 20:56] LABS: Slide Review Reflex No
[2025-04-15 21:05] LABS: Chloride* 102 mmol/L (96-114); Potassium* 4.1 mmol/L (3.6-5.1); Sodium* 137 mmol/L (135-149)
[2025-04-15] MEDS: 0.9 % SODIUM CHLORIDE 1000 ml 1,000 ML 500 ML IV (21:07)
[2025-04-15 21:08] LABS: Anion Gap 7 mEq/L (7-15); Blood Urea Nitrogen* 10 mg/dL (5-24); Calcium* 10.1 mg/dL (8.4-10.6); Carbon Dioxide* 28 mmol/L (20-32); Creatinine* 0.7 mg/dL (0.5-1.5); Est. Creatinine Clearance* 113.79; Estimated Glomerular Filt Rate 126 ml/min; Glucose* 77 mg/dL (60-115)
== END 2025-04-15 22:23 | disposition home or self-care (01) ==
PROVIDERS: Emergency Provider Family Medicine; PCP Family Medicine
DX: O21.9 Vomiting of pregnancy, unspecified (principal); Z3A.01 Less than 8 weeks gestation of pregnancy
CPT/HCPCS: 36415; 76801; 76817; 80048; 81001; 85025; 87086; 96361; 96374; 99284; J2405; J7030

== ENCOUNTER 2025-10-23 10:49 | Outpatient (CLI) | payer BC, SELFPAY ==
[2025-10-23 11:09] VITALS: BP 123/84; PULSE 70; PULSE 72; O2SAT 97
[2025-10-23 12:16] LABS: Appearance Urine Clear (Clear)
[2025-10-23 12:37] LABS: Trichomonas No Trichomonas Seen (None Seen)
[2025-10-23 15:24] VITALS: BP 118/71; PULSE 59
[2025-10-23] MEDS: LACTATED RINGERS 1000 ML 1,000 ML IV (15:25)
[2025-10-23] MEDS: ACETAMINOPHEN 500 MG TABLET 1000 MG PO (15:42)
--- NOTE | 2025-10-23 18:17 | PC.OBNST ---
NST Note NST Note Start: 10/23/25 11:00 Freq: ONCE Status: Active Protocol: Document 10/23/25 18:16 FJZ (Rec: 10/23/25 18:17 FJZ No Response) NST Note 2 Para (# of births) 1 EDC 12/01/25 Gestational Age In 34 Weeks & 3 Days Weeks & Days High Risk Factors History of Labor/Delivery Patient Presented Contractions/cramping with Complaint(s) of Reactive Yes RN Bhavin Flores RN Date 10/23/25 Reactive Yes SANTA Carter RN Date 10/23/25 OB NST charge Yes Complete NST Note Yes via Write Note The provider's electronic signature indicates the NST is reactive/appropriate for gestational age. *Note to provider: If an addendum is required, open the patient's chart and click on the note under the Nurse/Allied Health tab.
== END 2025-10-23 16:47 | disposition home or self-care (01) ==
LOC: OB OUT 10:51 → OB 10:52
PROVIDERS: PCP Family Medicine; Visit Provider Student in an Organized Health Care Education/Training Program
DX: O47.03 False labor before 37 completed weeks of gestation, third trimester (principal); Z3A.34 34 weeks gestation of pregnancy
CPT/HCPCS: 59025; 81001; 81003; 87086; 87210; G0463; A9270; J7120